=== PATIENT | male | born 1965 | race Caucasian/White ===

== ENCOUNTER 2018-09-08 10:50 | Emergency (ER) | payer MEDICAID ==
[~2018-09-08] VITALS: Ht 182.9 cm; Wt 95.0 kg
[~2018-09-08 10:50] MED LIST: ATOR20TA66 PO; FLUO10CA28 PO; LISI10TA4 PO; METO-395 PO
[2018-09-08 11:16] VITALS: BP 140/84
[2018-09-08] MEDS ORDERED: GUAI237S46 PO (13:14)
[2018-09-08] MEDS ORDERED: ALBU8HFA PO (13:14)
[2018-09-08] MEDS ORDERED: AZIT-63 PO (13:58)
[2018-09-08] MEDS ORDERED: azithromycin 250mg tablet PO ONE (14:00)
== END 2018-09-08 14:14 | disposition home or self-care (01) ==
LOC: ER 10:51
DX: J20.9 Acute bronchitis, unspecified (principal); I10 Essential (primary) hypertension; E78.00 Pure hypercholesterolemia, unspecified; Z59.0 Homelessness
CPT/HCPCS: 71046; 99283

== ENCOUNTER 2020-03-16 18:13 | Emergency (ER) | payer MEDICAID ==
[~2020-03-16] VITALS: Ht 182.9 cm; Wt 90.9 kg
[~2020-03-16 18:13] MED LIST changes: +ATOR20TA PO; -ATOR20TA66 PO; -FLUO10CA28 PO; +FLUO40CA10 PO; +LISI-600 PO; -LISI10TA4 PO; -METO-395 PO; +OMEP40CA13 PO; +QUET200T PO
[2020-03-16] MEDS ORDERED: HYDROcodone/acetaminophen 5mg/325mg tablet PO ONE (21:10)
--- NOTE | 2020-03-16 21:24 | NUR ---
splint has been removed by supply chain technician, pt is waiting for painting technician
--- NOTE | 2020-03-16 22:05 | NUR ---
licensed veterinary technician at bedside
[2020-03-16 23:05] VITALS: BP 131/89
--- NOTE | 2020-03-16 23:05 | NUR ---
pt moved to room 4
[2020-03-17] MEDS ORDERED: ketorolac tromethamine 15mg/ml inj. IM ONE (00:15)
[2020-03-17] MEDS ORDERED: acetaminophen 325mg tablet PO ONE (00:15)
== END 2020-03-17 00:50 | disposition home or self-care (01) ==
LOC: ER 18:13
DX: M79.604 Pain in right leg (principal); E78.00 Pure hypercholesterolemia, unspecified; I10 Essential (primary) hypertension; F12.90 Cannabis use, unspecified, uncomplicated; G89.29 Other chronic pain; Z98.890 Other specified postprocedural states; Z59.0 Homelessness; Z79.899 Other long term (current) drug therapy
CPT/HCPCS: 93971; 96372; 99284; J1885